=== PATIENT | female | born 1990 | race Caucasian/White ===

== ENCOUNTER 2017-03-27 15:44 | Emergency (ER) | payer BC ==
--- NOTE | 2017-03-27 16:22 | OBHP ---
Datetime: 03/27/2017 16:19 IP Adm Impression: , intrauterine IP Chief Complaint Other: nst IP Admit Plan: Discharge home Admit Comment, IP Provider: at 36.5weks hher for nst for iugr, no ctxs, vb, lof+fm obhx pimi pmh de med pnv all nkda psh den soch de a/p at 36+weeks nst for iugr dc home no sex po hyra f/u dr zamudio on saturday Pelvic Type - PN: Adequate Extremities - PN: Normal Abdomen - PN: Normal Back - PN: Normal Breast - PN: Normal Lungs - PN: Normal Heart - PN: Normal Thyroid - PN: Normal Neurologic - PN: Normal HEENT - PN: Normal General - PN: Normal FHR - Baseline A Provider: 140 Contraction Comments Provider: none Vital Signs Provider: Reviewed; Within Normal Limits NICHD Variability Prov Fetus A: Moderate 6-25bpm NICHD Accel Fetus A IP Provider: 15X15 FHR Category Provider Fetus A: Category I Genitourinary Exam: Normal DTRs - PN: Normal
== END 2017-03-27 16:25 | disposition home or self-care (01) ==
LOC: C.EROB 15:44
DX: Z36.89 Encounter for other specified antenatal screening (principal); Z3A.36 36 weeks gestation of pregnancy

== ENCOUNTER 2017-04-10 16:38 | Inpatient (IN) | payer BC ==
[2017-04-10] MEDS ORDERED: Sodium Citrate/Citric Acid 15 ml Sol PO ONE (17:02)
[2017-04-10] MEDS ORDERED: cefOXitin IV 2 gm in Dextrose 2 GM/50 ML BAG IVPB ONE (17:02)
[2017-04-10] MEDS ORDERED: Lactated Ringer's 1,000 ML IV SCH (17:15)
[2017-04-10 17:36] LABS: BASO % 0.2 % (0.0-2.0); EOS # 0.2 K/uL (0.0-0.7); EOS % 1.3 % (0.0-4.0); HEMOGLOBIN 10.6 g/dL (11.0-16.0); LYMPH # 2.3 K/uL (1.0-4.3); LYMPH % 15.8 % (20.0-40.0); MEAN CELL VOLUME 84.1 fL (81.0-99.0); MEAN CORPUSCULAR HEMOGLOBIN 28.2 pg (27.0-31.0); MEAN CORPUSCULAR HGB CONC 33.5 g/dL (33.0-37.0); MEAN PLATELET VOLUME 8.6 fL (7.2-11.7); MONO # 0.8 K/uL (0.0-0.8); MONO % 5.9 % (0.0-10.0); NEUT % 76.8 % (50.0-75.0); RBC 3.77 Mil/uL (3.80-5.20); RED CELL DISTRIBUTION WIDTH 15.7 % (11.5-14.5); WHITE BLOOD COUNT 14.3 K/uL (4.8-10.8)
[2017-04-10 17:45] LABS: SQUAMOUS EPITHIAL 4 /hpf (0-5); URINE BACTERIA OCC (<OCC); URINE BILIRUBIN NEGATIVE (NEGATIVE); URINE BLOOD 1+ (NEGATIVE); URINE CLARITY Hazy (Clear); URINE COLOR Yellow (YELLOW); URINE GLUCOSE (UA) NORMAL (Normal); URINE LEUKOCYTE ESTERASE 2+ Leu/uL (Negative); URINE NITRATE NEGATIVE (NEGATIVE); URINE PROTEIN NEGATIVE (NEGATIVE); URINE UROBILINOGEN NORMAL mg/dL (0.2-1.0)
[2017-04-10 17:52] LABS: ALB/GLOB RATIO 0.9 (1.0-2.1); ALBUMIN 3.5 g/dL (3.5-5.0); ALT/SGPT 20 U/L (9-52); AST/SGOT 21 U/L (14-36); BLOOD UREA NITROGEN 8 mg/dL (7-17); CALCIUM 9.5 mg/dl (8.6-10.4); GFR AFRICAN-AMERICAN > 60; GFR NON-AFRICAN AMERICAN > 60
[2017-04-10] MEDS ORDERED: cefOXitin 2 GM in Sodium Chloride 0.9% 100 ML IV ONE (18:00)
--- NOTE | 2017-04-10 18:17 | OBHP ---
Datetime: 04/10/2017 16:53 IP Adm Impression: Term, intrauterine IP Chief Complaint Other: IUGR IP Admit Plan: Admit to unit Admit Comment, IP Provider: Patient is a 27 year old at 38w5d PJ 04/19/17 by 13w4d US, not consi stent with LMP, presents to L+D for evaluation. Patient was being monitored by MFM for poor fet al growth. Patient had a sonogram this morning and MFM-Dr Skaggs is recommending delivery. Patient is doing well, endorses +FM, denies VB, LOF. Issues: IUGR OB Hx: 1. Current [employer] Hx: LMP - 07/04/16 [facility] - 14 x irregular x 5 days Denies fibroids, ovarian cysts, STIs Denies Hx of abnormal pap smears Allergies: NKDA Medications: PNV Medical Hx: Denies Surgical Hx: Laparoscopy in 2017 for blocked fallopian tubes Social Hx: Denies alcohol, tobacco, drug use Family Hx: Denies PE: See above A/P: 27 year old at 38w5d presents to L+D for abdominal pain, hx of poor growth, MFM - Dr Skaggs recommending delivery -Stable, afebrile -CEFM and TOCO -Admission labs: CBC, CMP, T+S, UA -Diet: NPO -Lactated ringers for IV hydration -Cefoxitin 2gm, bictra, and pepcid preoperatively -Plan discussed with Dr Ashish Daley DO PGY-1 Extremities - PN: Normal Abdomen - PN: Normal Lungs - PN: Normal Heart - PN: Normal Neurologic - PN: Normal General - PN: Normal FHR - Baseline A Provider: 145 Contraction Comments Provider: q2-6 min Comments, ACOG Physical Exam: Gen: AAOx3 Abd: Soft, gravid Ext: No clubbing, cyanosis, edema IP Hx Assessment: The History has been Reviewed and is Current EGA AdmitDate IP: 38.5 Vital Signs Provider: Reviewed; Within Normal Limits IP Chief Complaint: evaluation; Other NICHD Variability Prov Fetus A: Moderate 6-25bpm NICHD Accel Fetus A IP Provider: [id number] FHR Category Provider Fetus A: Category I NICHD Decel Fetus A IP Provider: None Dilatation, Provider: 1 Effacement, Provider: 20 Station, Provider: -3
[2017-04-10] MEDS ORDERED: Sodium Citrate/Citric Acid 15 ml Sol ONE (18:27)
[2017-04-10] MEDS ORDERED: Oxytocin 20 units in LR 2,000 ML IV ONE (18:27)
[2017-04-10] MEDS ORDERED: ePHEDrine 50 mg/ml Inj ONE (19:50)
[2017-04-10] MEDS ORDERED: Oxytocin 10 Units/ml Inj ONE (20:22)
[2017-04-10] MEDS ORDERED: Oxycodone/Acetaminophen 5/325 mg Tab PO PRN (20:55)
[2017-04-11] MEDS: cefOXitin IV 2 gm in Saline 2 GM in Sodium Chloride 0.9% 100 ML IV SCH ×3 (02:58→19:34)
--- NOTE | 2017-04-11 05:45 | HP ---
HISTORY OF PRESENT ILLNESS: The patient is a 27-year-old female, 1, para 0 with due date of at 38 weeks 5 days with a history of intrauterine growth retardation with head circumference of the placenta, who has been undergoing weekly biophysical profiles. The patient was recommended for delivery by kiosk sales representative ____. The patient was given the option of induction with elective section. She has opted for an elective section. The patient is coming in for an elective section. The patient's course is significant for intrauterine growth retardation. PAST MEDICAL HISTORY: Unremarkable. ALLERGIES: NONE. SOCIAL HISTORY: She does not smoke or drink. MEDICATIONS: Currently, she is not taking any calcium or airborne medications. PHYSICAL EXAMINATION VITAL SIGNS: Blood pressure is 110/70, pulse is 72, respiratory rate is 20, and temperature is 98.8. HEAD, EYES, EARS, NOSE AND THROAT: Within normal. CHEST: Clear. CARDIAC: Reveals normal heart sounds without any murmurs. LUNGS: Clear. BREASTS: Reveal no masses. ABDOMEN: Symphyseal fundal height is 38 cm, longitudinal lie vertex. heart tones are normal. Cervix is 1 cm long posterior. ADMITTING DIAGNOSES: Intrauterine at 38 weeks 5 days, intrauterine growth retardation. PLAN: Desire elective section. Recommended delivery. Plan is to perform a lower segment section. Prior to being scheduled for the surgical procedure, the patient underwent an informed consent, discussion, and education session lasting approximately an hour, during which time I explained in understandable terms the following; the nature and extent of the disease process and the nature and extent of the contemplated operation. I also explained to her the risks and potential complications of the operative procedures to include, but not limited to infection, hemorrhoids, deep vein thrombosis, atelectasis, pneumonia, pulmonary embolism, damage to the bladder, damage to the ureter, renal insufficiency, renal failure, wound infection, wound dehiscence, incisional hernia, keloid formation, damage to large and small intestine, damage to inferior vena cava and aorta requiring extensive repair, anesthesia complications, electrolyte imbalance, low scores, breathing difficulties in the baby, and other complications that were discussed but are not listed above. Also discussed with the patient the anticipated benefits and results of the surgery including a conservative estimate of the successful outcome. I discussed with the patient about the operation and not accomplished. I informed the patient of the possibility of unanticipated pathology requiring a more extensive procedure. All of the questions from the patient were encouraged, welcomed and answered to her satisfaction. Abdirahman Snell MD
--- NOTE | 2017-04-11 06:28 | OP ---
PROCEDURE DATE: PREOPERATIVE DIAGNOSES: Intrauterine at 38 weeks 5 days, intrauterine growth retardation, desires elective section. POSTOPERATIVE DIAGNOSES: Intrauterine at 38 weeks 5 days, intrauterine growth retardation, desires section. PROCEDURE: Lower segment section. FINDINGS: A live female , Apgars 9 at one minute and 9 at five minutes with normal tubes and ovaries. SURGEON: Abdirahman Snell MD PRIVATE SECTOR EXECUTIVE: Osmar Mays MD ESTIMATED BLOOD LOSS: 250 mL. ANESTHESIA: Spinal. COMPLICATIONS: Nil. DESCRIPTION OF PROCEDURE: After the risks, benefits, and alternatives of the planned procedures including but not limited to infection, hemorrhage, deep vein thrombosis, atelectasis, pneumonia, pulmonary embolism, damage to the bladder, damage to the ureter, renal insufficiency, renal failure, wound infection, wound dehiscence, incisional hernia, keloid formation, damage to large and small intestines, damage to the inferior vena cava and aorta, requiring extensive repair, anesthesia complications, electrolyte imbalance, possibility of , fluid overload, low scores, breathing difficulties in the baby and other complications that were discussed, but are not listed above have been explained to the patient and all her questions were answered and informed consent was obtained. The patient was taken to the operating room in a stable condition. Under suitable level of spinal analgesia, she was prepped and draped in a sterile fashion after having been placed in a supine position. The abdomen was entered through a Pfannenstiel-type incision, carried through the subcutaneous tissues to the fascia. Fascia was opened transversely and dissected off the rectus abdominis musculature. The rectus abdominis musculature was then in the midline to remove the parietal peritoneum, which was entered sharply and incised superiorly and inferiorly. The bladder peritoneum was then incised in a curvilinear fashion and dissected off the lower uterine segment. The lower uterine segment was then entered through a curvilinear incision. Surgeon's fingers were inserted into the lower uterine segment to grasp the 's head, which was lying in a right occipital anterior position. The head was easily delivered, nose and mouth were suctioned free of amniotic fluid, and the remainder of the was delivered without any difficulty. Cord was doubly clamped and cut and the baby was handed over to the pediatricians who were in attendance. Cord blood was collected with Pitocin running, placenta was manually removed. The endometrium was then cleansed of membranes and clots. The uterine incision was then closed in layers with the first layer being a running interlocking layer using #1 chromic and the second layer being used to imbricate the first layer. Hemostasis was good. The bladder peritoneum was then reapproximated using a running suture of 2-0 chromic. Peritoneal cavity was then irrigated using copious amounts of saline. The saline was evacuated. The abdomen was then closed in layers with 0 chromic to the parietal peritoneum. Rectus muscles were reapproximated using interrupted sutures of 0 Chromic. Fascia was reapproximated using 2 separate running sutures of 0-Vicryl to meet in the midline. Subcutaneous tissues were reapproximated using interrupted sutures of 0 plain and the initial skin incision was reapproximated using 4 Vicryl in a subcuticular fashion. Estimated blood loss for the procedure was 250 mL. Pad, needle, and instrument counts were correct x2. There were no complications. Abdirahman Snell MD
[2017-04-11 08:09] LABS: BASO % 0.1 % (0.0-2.0); EOS # 0.1 K/uL (0.0-0.7); EOS % 0.4 % (0.0-4.0); HEMOGLOBIN 8.7 g/dL (11.0-16.0); LYMPH # 1.2 K/uL (1.0-4.3); LYMPH % 7.2 % (20.0-40.0); MEAN CELL VOLUME 83.9 fL (81.0-99.0); MEAN CORPUSCULAR HEMOGLOBIN 28.6 pg (27.0-31.0); MEAN CORPUSCULAR HGB CONC 34.1 g/dL (33.0-37.0); MEAN PLATELET VOLUME 8.2 fL (7.2-11.7); MONO # 0.7 K/uL (0.0-0.8); MONO % 4.4 % (0.0-10.0); NEUT # 14.3 K/uL (1.8-7.0); NEUT % 87.9 % (50.0-75.0); PLATELET COUNT 168 K/uL (130-400); RBC 3.06 Mil/uL (3.80-5.20); RED CELL DISTRIBUTION WIDTH 15.9 % (11.5-14.5); WHITE BLOOD COUNT 16.3 K/uL (4.8-10.8)
[2017-04-11] MEDS ORDERED: Glucagon Recombinant 1 mg Inj ONE (08:43)
[2017-04-11 09:33] LABS: ANISOCYTOSIS SLIGHT; EOSINOPHIL 2 % (0-4); HYPOCHROMIC SLIGHT; LYMPHOCYTE 7 % (20-40); MONOCYTE 1 % (0-10); NEUTROPHIL 90 % (50-75); PLATELET ESTIMATE NORMAL (NORMAL); POLYCHROMIC SLIGHT; TOTAL CELLS COUNTED 100
[2017-04-11] MEDS: Simethicone 80 mg Chewtab PO SCH ×4 (10:02→21:43)
[2017-04-11] MEDS: Oxycodone/Acetaminophen 5/325 mg Tab PO PRN ×2 (10:02→16:31)
[2017-04-11] MEDS: Enoxaparin 40 mg Syringe SC SCH (16:25)
[2017-04-11] MEDS ORDERED: cefOXitin IV 2 gm in Saline 2 GM/50 ML BAG IVPB ONE (19:32)
[2017-04-11] MEDS ORDERED: Bisacodyl 5mg EC Tab PO ONE (20:56)
[2017-04-12] MEDS: Oxycodone/Acetaminophen 5/325 mg Tab PO PRN ×4 (00:54→21:21)
[2017-04-12] MEDS: Enoxaparin 40 mg Syringe SC SCH (11:20)
[2017-04-12] MEDS: Simethicone 80 mg Chewtab PO SCH ×4 (11:21→21:22)
[2017-04-13] MEDS: Oxycodone/Acetaminophen 5/325 mg Tab PO PRN (04:36)
[2017-04-13 08:05] VITALS: BP 118/75; RESP 18; TEMP 97.7; O2SAT 100
[2017-04-13] MEDS ORDERED: Influenza Vaccine 60 mcg/0.5 mL SYR (4YR UP) IM ONE (08:55)
[2017-04-13] MEDS: Enoxaparin 40 mg Syringe SC SCH (09:05)
[2017-04-13] MEDS: Simethicone 80 mg Chewtab PO SCH (09:05)
[2017-04-13 16:52] VITALS: PULSE 88
--- NOTE | 2017-04-14 01:19 | PN ---
DATE: 04/12/2017 SUBJECTIVE: The patient has no complaints. OBJECTIVE: VITAL SIGNS: Stable. She is afebrile. ABDOMEN: Abdomen incision is clean and intact. Bowel sounds are normal. EXTREMITIES: Nontender with no evidence of DVT. CHEST: Clear. CARDIAC: Reveals normal heart sounds without any murmurs. ASSESSMENT: The patient is status post section day 3. PLAN: To discharge the patient home on Keflex 500 mg four times a day x7 days and Tylenol No. 3 two tablets q.4 hourly p.r.n. for a total of 20 tablets. To be followed up in the office in one week. Abdirahman Snell MD
--- NOTE | 2017-04-14 13:32 | DS ---
The patient was admitted at 38 weeks 5 days, with severe IUGR for delivery as per Maternal- Medicine. The patient was given the option of impaction versus elective section. She opted for elective section. The patient underwent a lower segment section, delivered a live female , Apgars 9 at 1 minute and 9 at 5 minutes, with normal tubes and ovaries. Her postoperative course was unremarkable. She was discharged home today on Keflex 500 mg four times a day x7 days and Tylenol No. 3 two tablets q. 4 hourly p.r.n. for a total of 40 tablets. To be followed up in the office in one week. Abdirahman Snell MD
== END 2017-04-13 12:50 | disposition home or self-care (01) | DRG 766 ==
LOC: C.EROB 16:38 → C.4D 17:00 → C.4M 04-11 00:16
PROVIDERS: ADMIT Obstetrics & Gynecology Reproductive Endocrinology; ATTEND Obstetrics & Gynecology Reproductive Endocrinology
PROC: 10D00Z1 Extraction of Products of Conception, Low, Open Approach (ICD-10-PCS; principal; 2017-04-10)
DX: O36.5930 Maternal care for other known or suspected poor fetal growth, third trimester, not applicable or unspecified (principal); Z37.0 Single live birth; Z3A.38 38 weeks gestation of pregnancy